=== PATIENT | female | born 2000 | race African-American/Black ===

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

== ENCOUNTER 2021-09-20 20:42 | Emergency (ER) | payer BC ==
--- NOTE | 2021-09-20 21:04 | EDM.PDOC ---
ED HPI GENERAL MEDICAL PROBLEM - General Chief Complaint: General Stated Complaint: INFLUENZA Time Seen by Provider: 09/20/21 21:01 - History of Present Illness INITIAL COMMENTS - FREE TEXT/NARRATIVE: HISTORY AND PHYSICAL: History of present illness: Is a healthy 21-year-old female with no history of hypertension, diabetes, liver, lung, kidney problems who presents ER today secondary concerns about exposure to a failure who was positive for influenza. Patient has any shortness of breath or chest pain. Patient has no other complaints at this time. Patient denies any tobacco alcohol or drugs. Review of systems: As per history of present illness and below otherwise all systems reviewed and negative. Past medical history: As per history of present illness and as reviewed below otherwise noncontributory. Surgical history: As per history of present illness and as reviewed below otherwise noncontributory. Social history: No reported history of drug abuse. Family history: As per history of present illness and as reviewed below otherwise noncontributory. Physical exam: This patient was seen and evaluated during the 2019 SARS-CoV-2 novel coronavirus pandemic period. Community viral transmission is ongoing at time of this encounter and the emergency department is operating under pandemic response procedures. Constitutional: Patient is oriented to person, place, and time. Appears well- developed and well-nourished. No distress. HEENT: Moist mucous membranes Head: Normocephalic and atraumatic Eyes: Right eye exhibits no discharge. Left eye exhibits no discharge. No scleral icterus Neck: Normal range of motion. No tracheal deviation present. Cardiovascular: Normal rate and regular rhythm. Pulmonary: Effort normal, no respiratory distress. Abdominal: No distention Musculoskeletal: Normal range of motion Neurologic: Alert and oriented to person, place and time. Skin: [place], warm and dry. Psychiatric: Normal mood and affect. Behavior is normal. Judgment and thought content normal. Nursing note and vital signs have been reviewed Diagnostics: Influenza test negative Therapeutics: [] Assessment and plan: 21-year-old asymptomatic female who presents ER today secondary to exposure to influenza. Patient is clinically hemodynamically stable. Patient will have testing performed for influenza A/B. Patient reports she has not had her influenza vaccinations. Definitive disposition and diagnosis as appropriate pending reevaluation and review of above. - Related Data Allergies Allergy/AdvReac Type Severity Reaction Status Date / Time shellfish derived Allergy Airway Verified 09/20/21 20:59 Tightness Home Meds: Home Meds . [No Known Home Meds] 09/20/21 [History] Past Medical History - Past Health History Medical/Surgical History: Denies Medical/Surgical History HEENT History: Reports: None Cardiovascular History: Reports: None Respiratory History: Reports: None Gastrointestinal History: Reports: None Genitourinary History: Reports: None SPORTS PHYSIOLOGIST History: Reports: Other (See Below) Other SPORTS PHYSIOLOGIST History: "Vaginal surgery as child to make a vaginal opening." Musculoskeletal History: Reports: None Neurological History: Reports: None Psychiatric History: Reports: None Endocrine/Metabolic History: Reports: None Hematologic History: Reports: None Immunologic History: Reports: None Oncologic (Cancer) History: Reports: None Dermatologic History: Reports: None - Infectious Disease History Infectious Disease History: Reports: None - Past Surgical History Head Surgeries/Procedures: Reports: None HEENT Surgical History: Reports: None Cardiovascular Surgical History: Reports: None Respiratory Surgical History: Reports: None GI Surgical History: Reports: None Female Surgical History: Reports: None Endocrine Surgical History: Reports: None Neurological Surgical History: Reports: None Musculoskeletal Surgical History: Reports: None Oncologic Surgical History: Reports: None Dermatological Surgical History: Reports: None Social & Family History - Family History Family Medical History: No Pertinent Family History - Tobacco Use Tobacco Use Status *Q: Never Tobacco User - Caffeine Use Caffeine Use: Reports: Soda - Recreational Drug Use Recreational Drug Use: No ED ROS GENERAL - Review of Systems Review Of Systems: See Below ED EXAM, GENERAL - Physical Exam Exam: See Below Course - Vital Signs Last Recorded V/S: Last Vital Signs Temp 97.9 F 09/20/21 20:56 Pulse 55 L 09/20/21 20:56 Resp 18 09/20/21 20:56 BP 106/38 L 09/20/21 20:56 Pulse Ox 100 09/20/21 20:56 - Orders/Labs/Meds Orders: Active Orders 24 hr Category Date Time Status COVID-19/FLU A+B [MOLEC] Stat Lab 09/20/21 21:04 Ordered Isolation [COMM] Routine Oth 09/20/21 21:03 Active Departure - Departure Time of Disposition: 21:53 Disposition: Home, Self-Care 01 Clinical Impression: Exposure to influenza - Discharge Information Instructions: Influenza, Adult, [id number] Forms: ED Department Discharge Additional Instructions: The following information is given to patients seen in the emergency department who are being discharged to home. This information is to outline your options for follow-up care. We provide all patients seen in our emergency department with a follow-up referral. The need for follow-up, as well as the timing and circumstances, are variable depending upon the specifics of your emergency department visit. If you don't have a primary care physician on staff, we will provide you with a referral. We always advise you to contact your personal physician following an emergency department visit to inform them of the circumstance of the visit and for follow-up with them and/or the need for any referrals to a consulting specialist. The emergency department will also refer you to a specialist when appropriate. This referral assures that you have the opportunity for follow-up care with a specialist. All of these measure are taken in an effort to provide you with optimal care, which includes your follow-up. Under all circumstances we always encourage you to contact your private physician who remains a resource for coordinating your care. When calling for follow-up care, please make the office aware that this follow-up is from your recent emergency room visit. If for any reason you are refused follow-up, please contact the [facility] Emergency Department at and asked to speak to the emergency department charge nurse. [facility] [address] [place] [address] [place] [address] Sepsis Event Note (ED) - Evaluation Sepsis Screening Result: No Definite Risk - Focused Exam Vital Signs: Vital Signs Temp Pulse Resp BP Pulse Ox 09/20/21 20:56 97.9 F 55 L 18 106/38 L 100 - My Orders Last 24 Hours: My Active Orders 09/20/21 21:03 Isolation [COMM] Routine 09/20/21 21:04 COVID-19/FLU A+B [MOLEC] Stat - Assessment/Plan Last 24 Hours: My Active Orders 09/20/21 21:03 Isolation [COMM] Routine 09/20/21 21:04 COVID-19/FLU A+B [MOLEC] Stat
[2021-09-20 22:21] VITALS: BP 100/57; PULSE 51
== END 2021-09-20 22:19 | disposition home or self-care (01) ==
LOC: MW.ED 20:42
DX: Z20.828 Contact with and (suspected) exposure to other viral communicable diseases (principal); Z91.013 Allergy to seafood
CPT/HCPCS: 87804; 99283

== ENCOUNTER 2023-06-24 06:22 | Emergency (ER) | payer SELFPAY ==
[2023-06-24] MEDS ORDERED: Dexamethasone 10 MG/ML SDV PO ONE (06:42)
[2023-06-24] MEDS ORDERED: Acetaminophen 325 MG Tab PO ONE (06:42)
[2023-06-24] MEDS ORDERED: Ibuprofen 400 MG Tab PO ONE (06:42)
[2023-06-24] MEDS ORDERED: Penicillin G Benzathine 1,200,000 Units/2 ML Syringe IM ONE (07:33)
[2023-06-24 08:00] VITALS: BP 105/54; PULSE 60
== END 2023-06-24 07:52 | disposition home or self-care (01) ==
LOC: MW.ED 06:22
DX: J02.0 Streptococcal pharyngitis (principal); Z91.013 Allergy to seafood
CPT/HCPCS: 87651; 99283; A9270; J8540

== ENCOUNTER 2024-06-25 09:50 | Emergency (ER) | payer SELFPAY ==
[2024-06-25 10:07] VITALS: BP 112/70; PULSE 57
[2024-06-25] MEDS: Ketorolac 30 MG/ML SDV IM ONE (10:20)
[2024-06-25] MEDS: Albuterol 8 GM Inhaler INH ONE (10:20)
[2024-06-25] MEDS: Ondansetron 4 MG Tab.DIS PO ONE (10:21)
== END 2024-06-25 10:56 | disposition home or self-care (01) ==
LOC: MW.ED 09:50
DX: U07.1 COVID-19 (principal); Z79.899 Other long term (current) drug therapy; Z91.013 Allergy to seafood; Z75.8 Other problems related to medical facilities and other health care
CPT/HCPCS: 96372; 99284; A9270; J1885; 99283

== ENCOUNTER 2024-06-27 08:48 | Emergency (ER) | payer SELFPAY ==
[2024-06-27] MEDS: Dexamethasone 4 MG Tab PO ONE (09:23)
[2024-06-27 10:20] LABS: CORONAVIRUS COVID-19 NAA POSITIVE (NEGATIVE); INFLUENZA A NAA NEGATIVE (NEGATIVE); INFLUENZA B NAA NEGATIVE (NEGATIVE); RESPIRATORY SYNCYTIAL VIR NAA NEGATIVE (NEGATIVE)
[2024-06-27 11:04] VITALS: BP 118/52; PULSE 59
== END 2024-06-27 10:45 | disposition home or self-care (01) ==
LOC: MW.ED 08:48
DX: U07.1 COVID-19 (principal); J40 Bronchitis, not specified as acute or chronic; R05.2 Subacute cough; Z91.013 Allergy to seafood
CPT/HCPCS: 0241U; 71046; 99283; J8540